=== PATIENT | male | born 1955 | race Caucasian/White ===

== ENCOUNTER → 2025-01-27 | Outpatient (CLI) | payer MEDICARE ==
--- NOTE | 2025-01-27 12:56 | US ---
EXAMINATION TYPE: US carotid duplex BILAT DATE OF EXAM: 01/27/2025 COMPARISON: NONE CLINICAL INDICATION: Male, 69 years old with history of I65.23 CAROTID STENOSIS; Stenosis Additional History: .... TECHNIQUE: Grayscale, color Doppler and spectral Doppler evaluation of the bilateral carotid systems and vertebral arteries. Indirect Doppler criteria was utilized. FINDINGS: EXAM MEASUREMENTS: RIGHT: Peak Systolic Velocity (PSV) cm/sec ----- Right CCA: 78.2 ----- Right ICA: 70.3 ----- Right ECA: 110.8 ICA/CCA ratio: 0.9 RIGHT: End Diastole cm/sec ----- Right CCA: 13.6 ----- Right ICA: 12.7 ----- Right ECA: 0.0 LEFT: Peak Systolic Velocity (PSV) cm/sec ----- Left CCA: 98.5 ----- Left ICA: 88.6 ----- Left ECA: 77.6 ICA/CCA ratio: 0.9 LEFT: End Diastole cm/sec ----- Left CCA: 12.8 ----- Left ICA: 23.7 ----- Left ECA: 0.0 VERTEBRALS (direction of flow): Right Vertebral: Antegrade Left Vertebral: Antegrade Rhythm: Normal TURBINE TECHNICIAN NOTES: No significant stenosis seen Color Doppler imaging shows patency with blood flow throughout the carotid artery. Spectral waveforms are within normal limits. IMPRESSION: Right: No hemodynamically significant stenosis. Left: No hemodynamically significant stenosis. Criteria for Assigning % of Stenosis / Diameter reduction (Estimation based on the indirect measurements of the internal carotid artery velocities (ICA PSV). 1. Normal (no stenosis)=ICA PSV < 180 cm/s: ratio < 2.0: ICA EDV<40 cm/s. 2. Less than 50% stenosis=ICA PSV < 180 cm/s: ratio < 2.0: ICA EDV<40 cm/s. 3. 50 to 69% stenosis=ICA PSV of 180 to 230 cm/s: ration 2.0 ? 4.0: ICA EDV 40-100 cm/s. PSV 125-180 cm/sec and ICA/CCA PSV Ratio ? 2.0 is also consistent with 50-69% stenosis 4. Greater than 70% stenosis to near occlusion= ICA PSV > 230 cm/s: ratio > 4.0: ICA EDV > 100 cm/s. 5. Near occlusion= ICA PSV velocities may be low or undetectable: variable ratio and ICA EDV. 6. Total occlusion=unable to detect flow. [facility], , 01/27/2025 12:54 PM
--- NOTE | 2025-01-27 18:04 | CA ---
Transthoracic Echo Report Name: Jose F Buckner Age: 69 Gender: M : 1955 Exam Date: 01/27/2025 12:56 Exam Location: [facility] Ht (in): 68 Wt (lb): 170 Ordering Physician: Torin Mirza MD Attending/Referring Phys: Torin Mirza MD Adobe Maker Marley Harris RDCS Procedure CPT: Indications: I34.0MIT REGURG I65.23 CAROTID STENOSIS Cardiac Hx: Technical Quality: Fair Contrast 1: Total Dose (mL): Contrast 2: Total Dose (mL): MEASUREMENTS (Male / Female) Normal Values 2D ECHO LV Diastolic Diameter PLAX 4.8 cm 4.2 - 5.9 / 3.9 - 5.3 cm LV Systolic Diameter PLAX 3.4 cm IVS Diastolic Thickness 1.1 cm 0.6 - 1.0 / 0.6 - 0.9 cm LVPW Diastolic Thickness 1.1 cm 0.6 - 1.0 / 0.6 - 0.9 cm LV Relative Wall Thickness 0.5 RV Internal Dim ED PLAX 3.6 cm LVOT Diameter 1.6 cm LA Systolic Diameter LX 4.4 cm 3.0 - 4.0 / 2.7 - 3.8 cm LV Diastolic Volume MOD 4C 93.0 cm??? LV Systolic Volume MOD 4C 37.6 cm??? LV Ejection Fraction MOD 4C 59.6 % LV Diastolic Length 4C 9.7 cm LV Systolic Length 4C 8.2 cm LV Diastolic Volume MOD 2C 113.4 cm??? LV Systolic Volume MOD 2C 49.9 cm??? LV Ejection Fraction MOD 2C 56.0 % LV Diastolic Length 2C 8.9 cm LV Systolic Length 2C 7.7 cm LA Volume 50.5 cm??? 18 - 58 / 22 - 52 cm??? LA Volume Index 26.1 cm???/m??? 16 - 28 cm???/m??? DOPPLER MV Area PHT 3.5 cm??? Mitral E Point Velocity 50.7 cm/s Mitral A Point Velocity 52.3 cm/s Mitral E to A Ratio 1.0 MV Deceleration Time 219.6 ms FINDINGS Left Ventricle Left ventricular ejection fraction is estimated at 55-60 %. Mild concentric left ventricular hypertrophy. Normal left ventricular systolic function with no obvious regional wall motion abnormalities. Left ventricular cavity size normal. Right Ventricle Normal right ventricular size and function. Unable to estimate the right ventricular systolic pressure. Right Atrium Normal right atrial size. Left Atrium Mildly increased left atrial diameter. Mitral Valve Structurally normal mitral valve. No mitral stenosis. Mild mitral regurgitation. Aortic Valve Trileaflet aortic valve. No aortic valve stenosis or regurgitation. Tricuspid Valve Structurally normal tricuspid valve. No tricuspid stenosis. Mild tricuspid regurgitation. Pulmonic Valve Structurally normal pulmonic valve. No pulmonic stenosis. Trace pulmonic regurgitation. Pericardium No pericardial effusion. Aorta Aortic annulus normal. CONCLUSIONS 1. Normal left ventricular size and systolic function 2. Mild mitral and tricuspid regurgitation Previewed by: Dr. Karlie Nuñez MD (Electronically Signed) Final Date: 27 January 2025 18:03
== END | disposition home or self-care (01) ==
LOC: RADUSWWP 12:11
PROVIDERS: ATTEND Internal Medicine
DX: I65.23 Occlusion and stenosis of bilateral carotid arteries (principal); I08.1 Rheumatic disorders of both mitral and tricuspid valves
CPT/HCPCS: 93306; 93880